=== PATIENT | female | born 1950 | race Caucasian/White ===

== ENCOUNTER 2017-04-11 22:53 | Observation (INO) ==
[2017-04-12] MEDS ORDERED: Ondansetron ODT 4 MG TAB.RAPDIS SL ONE (00:12)
[2017-04-12] MEDS ORDERED: *HR* HYDROmorphone (PF) 1 MG/ML SYRINGE IM ONE (00:12)
--- NOTE | 2017-04-12 00:15 | Emergency Department Note ---
Disposition Clinical Impression: Left leg pain, Vascular disease, peripheral Disposition: Admitted As Inpatient Condition: Undetermined Time of Disposition: 04:12 Lower Extremity Injury HPI - General Chief Complaint: ED Extremity Injury, Lower Stated Complaint: L Leg Pain Time Seen by Provider: 04/12/17 00:09 Source: patient, family Mode of arrival: ambulatory Limitations: no limitations Nursing Notes Reviewed: Yes Vital Signs Reviewed: Yes - History of Present Illness HPI Narrative: 67-year-old female diabetic arrives [facility] emergency department complaining of left lower extremity pain. The patient was recently seen at [facility] one day ago for similar complaints. MRI was obtained at [facility] which revealed "pinched nerves" and the discharge the patient home on [place]. The patient was instructed to return to the emergency department the pain worsened which she states it has so she arrives to [facility] emergency department for further evaluation. The patient has pain on palpation to light touch across her entire left lower extremity but has no true weakness noted. The patient has no saddle anesthesias , no bowel incontinence, no urinary retention. The patient does have tenderness to palpation of her lumbar spine. She denies any recent falls, injuries, any other complaints at this time. The patient is in the room stating that it hurts but when out of the room initially she was quiet. After examination was performed she is moaning and crying that her leg hurts. Patient 's family members seemed frustrated at inability to control pain. Patient is currently on [place] and gabapentin at home. Onset (ago): day(s) (4) Mechanism of Injury: unknown Pain Severity: severe Pain Scale: 10 Improves with: nothing Worsens with: nothing Associated symptoms: Reports: unable to bear weight - Related Data Home Medications Medication Instructions Recorded Confirmed Aspirin Enteric Coated [Aspirin EC] 81 mg PO DAILY 07/29/15 07/29/15 Atorvastatin Calcium [Lipitor] 80 mg PO HS 07/29/15 07/29/15 Bumetanide [Bumex] 1 mg PO BID 07/29/15 07/29/15 Carvedilol 12.5 mg PO BID 07/29/15 07/29/15 Insulin ASPART [NovoLOG] 40 unit SQ QAM AND QHS 07/29/15 07/29/15 Isosorbide MONOnitrate (24 HR) 60 mg PO DAILY 07/29/15 07/29/15 [Imdur] Lisinopril [Zestril] 5 mg PO DAILY 07/29/15 07/29/15 Metformin HCl [Glucophage] 1,000 mg PO BID 07/29/15 07/29/15 Spironolactone [Aldactone] 25 mg PO BID 07/29/15 07/29/15 Allergies Allergy/AdvReac Type Severity Reaction Status Date / Time No Known Allergies Allergy Verified 04/11/17 23:14 All systems ED: reviewed and negative except as stated. Constitutional: Denies: fever, chills, weakness, weight change Eyes: Denies: eye pain, eye discharge, vision change Cardiovascular: Denies: chest pain, palpitations, dyspnea on exertion, edema, syncope Respiratory: Denies: cough, dyspnea, wheezes, hemoptysis, stridor Gastrointestinal: Denies: abdominal pain, nausea, vomiting, diarrhea, constipation, hematemesis, melena, hematochezia Genitourinary: Denies: dysuria, frequency, hematuria, discharge Musculoskeletal: Reports: myalgia. Denies: back pain, neck pain, arthralgia Integumentary: Denies: rash, abrasion, lesions Neurological: Denies: headache, weakness, numbness, paresthesias, confusion, abnormal gait, vertigo Past Medical History - Past Medical History Attestation: Yes The following information was validated with the patient. Source: patient Medical history: Reports: cardiomyopathy, diabetes, hyperlipidemia, hypertension Surgical history: Reports: cholecystectomy, pacemaker/AICD Psychiatric history: Reports: no psych history - Social History Smoking Status: Current every day smoker Smokeless Tobacco Status: No Alcohol use: Reports: none Drug use: Reports: none Physical Exam - General Limitations: no limitations General appearance: alert, in distress (Due to pain) - Head Head exam: atraumatic, normocephalic, normal inspection - Neck Neck exam: Present: normal inspection, full ROM, trachea midline - Chest Chest inspection: Present: normal inspection, symmetric chest wall rise - Respiratory Respiratory exam: Present: normal lung sounds bilaterally - Cardiovascular Cardiovascular exam: Present: regular rate, normal rhythm, normal heart sounds - Abdominal Exam Abdominal exam: Present: soft, Non-Tender. Absent: tenderness, distention, guarding, rebound, rigidity - Extremities Exam Extremities exam: Present: full ROM, tenderness (Severe pain in LLE), other ( LLE superficial varicose veins) Course - Consultations Consultation #1: We spoke with Dr. Whitaker in vascular surgery who is rack production worker, he recommended obtaining a CT aorta with runoff. In addition we will admit the patient to the hospital. He requested that we place the patient directly on his list if we were going to have him see the patient further. Time: 03:15 Vital Signs Temperature 97.6 F 04/11/17 23:09 Pulse Rate 84 04/11/17 23:09 Respiratory Rate 18 04/11/17 23:09 Blood Pressure 99/61 04/11/17 23:09 O2 Sat by Pulse Oximetry 97 04/11/17 23:09 Temperature 97.6 F 04/12/17 05:54 Pulse Rate 82 04/12/17 05:54 Respiratory Rate 20 04/12/17 05:54 Blood Pressure 86/56 04/12/17 05:54 O2 Sat by Pulse Oximetry 100 04/12/17 05:54 Oxygen Delivery Oxygen Delivery Room Air Extremity Injury, Lower - MDM Narrative Medical decision making narrative: Patient is no acute fractures. Given the patient's symptoms and concern for intractable pain through the emergency department inability to ambulate, we will admit the patient to the hospital for elevated CPK, intractable pain, concern for arterial compromise of her left lower extremity. We will speak to the vascular surgeon with regards to this patient. We do not feel as though this is compartment syndrome at this time given the lack of trauma and symptoms. In addition we will admit the patient to the hospitalist service for further workup and care and pain control. Accepted by Dr. Lim. - Lab Data Lab results reviewed: Yes I reviewed the patient's lab results. Result diagrams: 04/12/17 01:14 04/12/17 01:14 Lab Results 04/12/17 04/12/17 04/12/17 Range/Units 01:14 01:14 01:14 WBC 12.3 H (4.3-11.1) K/mcL RBC 4.13 (3.82-4.97) M/mcL Hgb 12.4 (11.5-15.4) g/dL Hct 37.9 (35.3-44.9) % MCV 91.8 (83.0-100.0) fL MCH 30.0 (28.0-33.3) pg MCHC 32.7 (31.6-35.5) g/dL RDW 14.2 (11.5-14.5) % Plt Count 177 (140-400) K/mcL MPV 10.0 (9.4-12.4) fL Immature Gran % 0.8 (0-4) % Seg Neutrophils % 85.6 % Lymphocytes % 5.5 % Monocytes % 7.8 % Eosinophils % 0.1 % Basophils % 0.2 % Neutrophils # 10.5 H (1.6-8.9) K/mcL Lymphocytes # 0.7 (0.6-4.6) K/mcL Monocytes # 1.0 (0.0-1.3) K/mcL Eosinophils # 0.0 (0.0-0.6) K/mcL Basophils # 0.0 (0.0-0.2) K/mcL Immature Plt Fraction 5.6 (1.1-6.1) % ESR (0-15) mm/hr Sodium 128 L (136-145) mEq/L Potassium 4.4 (3.5-4.5) mEq/L Chloride 94 L (98-109) mEq/L Carbon Dioxide 21 (19-29) mEq/L BUN 30 H (7-20) mg/dL Creatinine 1.03 (0.57-1.11) mg/dL Est GFR ( Amer) > 60 (> 60) Est GFR (Non-Af Amer) 53 L (> 60) BUN/Creatinine Ratio 29 H (6-26) Glucose 119 H (70-99) mg/dL Calculated Osmolality 273 L (280-300) Lactic Acid 1.5 (0.5-2.2) mmol/L Calcium 9.3 (8.6-10.8) mg/dL Creatine Kinase 804 H (29-168) Units/L 04/12/17 Range/Units 01:14 WBC (4.3-11.1) K/mcL RBC (3.82-4.97) M/mcL Hgb (11.5-15.4) g/dL Hct (35.3-44.9) % MCV (83.0-100.0) fL MCH (28.0-33.3) pg MCHC (31.6-35.5) g/dL RDW (11.5-14.5) % Plt Count (140-400) K/mcL MPV (9.4-12.4) fL Immature Gran % (0-4) % Seg Neutrophils % % Lymphocytes % % Monocytes % % Eosinophils % % Basophils % % Neutrophils # (1.6-8.9) K/mcL Lymphocytes # (0.6-4.6) K/mcL Monocytes # (0.0-1.3) K/mcL Eosinophils # (0.0-0.6) K/mcL Basophils # (0.0-0.2) K/mcL Immature Plt Fraction (1.1-6.1) % ESR 64 H (0-15) mm/hr Sodium (136-145) mEq/L Potassium (3.5-4.5) mEq/L Chloride (98-109) mEq/L Carbon Dioxide (19-29) mEq/L BUN (7-20) mg/dL Creatinine (0.57-1.11) mg/dL Est GFR ( Amer) (> 60) Est GFR (Non-Af Amer) (> 60) BUN/Creatinine Ratio (6-26) Glucose (70-99) mg/dL Calculated Osmolality (280-300) Lactic Acid (0.5-2.2) mmol/L Calcium (8.6-10.8) mg/dL Creatine Kinase (29-168) Units/L - Radiology Data Radiology results reviewed: Yes I reviewed the patient's radiology results. Attestation Statement - Attestation Attestation: I examined this patient and my medical decision-making was reviewed with the CHIEF BUSINESS DEVELOPMENT OFFICER/PA/Advanced Practice Nurse/Resident Physician. I agree with the documented findings, disposition and treatment plan as described except to the extent set forth below. In summary this is a female patient with pain out of proportion to examination of the left lower extremity. Duplex shows concern for arterial impairment. ABIs are concerning and borderline. Given low blood pressure this could represent early critical stenosis. Ultimately we will proceed with admission for intractable lower extremity pain. We will obtain CT angiography with runoffs from the aorta. Additionally we will control her pain. X-rays show no evidence of acute fracture.
[2017-04-12] MEDS ORDERED: 0.9 % Sodium Chloride 1,000 ML IVC ONE ×2 (00:17→03:14)
[2017-04-12 01:20] LABS: Hematocrit 37.9 % (35.3-44.9); Hemoglobin 12.4 g/dL (11.5-15.4); Immature Granulocytes % 0.8 % (0-4); Immature Platelets 5.6 % (1.1-6.1); Lymphocytes % 5.5 %; Mean Corpuscular HGB Conc 32.7 g/dL (31.6-35.5); Mean Corpuscular Volume 91.8 fL (83.0-100.0); Platelet Count 177 K/mcL (140-400); Red Blood Count 4.13 M/mcL (3.82-4.97); Red Cell Distribution Width 14.2 % (11.5-14.5); Segmented Neutrophils % 85.6 %
[2017-04-12 01:21] LABS: Basophils % 0.2 %; Eosinophils % 0.1 %; Lymphocytes # 0.7 K/mcL (0.6-4.6); Monocytes % 7.8 %; Neutrophils # 10.5 K/mcL (1.6-8.9)
[2017-04-12 01:35] LABS: BUN/Creatinine Ratio 29 (6-26); Blood Urea Nitrogen 30 mg/dL (7-20); Calcium 9.3 mg/dL (8.6-10.8); Carbon Dioxide 21 mEq/L (19-29); Chloride 94 mEq/L (98-109); Creatine Kinase 804 Units/L (29-168); Glucose 119 mg/dL (70-99); Osmolality,Calculated 273 (280-300); Potassium 4.4 mEq/L (3.5-4.5); Sodium 128 mEq/L (136-145); eGFR For African Americans > 60 (> 60); eGFR For Non-African Americans 53 (> 60)
[2017-04-12] MEDS ORDERED: predniSONE 20 MG TABLET PO ONE (04:11)
[2017-04-12] MEDS ORDERED: Ondansetron 4 MG/2 ML VIAL IVP PRN (05:34)
[2017-04-12] MEDS ORDERED: *HR* HYDROmorphone (PF) 1 MG/ML SYRINGE IVP PRN (05:34)
[2017-04-12] MEDS ORDERED: *HR* Morphine 2 MG/ML SYRINGE IVP PRN ×2 (05:34→11:08)
[2017-04-12] MEDS ORDERED: Naloxone 0.4 MG/ML INJ IVP PRN (05:34)
[2017-04-12] MEDS ORDERED: *HR* Dextrose 50 % in Water (Syg) 50 ML SYRINGE IVP PRN (05:37)
[2017-04-12] MEDS ORDERED: Dextrose Gel 15 GM PO PRN ×2 (05:37)
[2017-04-12] MEDS ORDERED: D5% in Water 1,000 ML IVC PRN (05:37)
--- NOTE | 2017-04-12 05:46 | Internal Med History&Physical ---
Date of Encounter: 04/12/17 Time of Encounter: 04:40 Assessment and Plan (1) Vascular disease, peripheral Current visit: Yes Status: Acute Given CTA aorta findings, patient's LE pain likely secondary to worsening of PVD Vascular surgery consultation requested with DR. Richards. Case was discussed with Dr. 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 transplanted heart: unspecified whether [place] or transplanted heart Associated angina: angina presence unspecified Qualified Code(s): I25.10 - Atherosclerotic heart disease of [place] coronary artery without angina pectoris (5) Chronic systolic congestive heart failure Current visit: No Status: Chronic No clinical signs of acute exacerbation continue home medications (6) DVT prophylaxis Current visit: Yes Status: Acute Heparin SQ (7) Tobacco abuse Current visit: Yes Status: Acute smoking cessation counseling provided patient not ready to quit at this time refused nicotine replacement therapy Internal Medicine - H&P: HPI Chief complaint: LLE pain Admitted From: Home Plans for Post Hospital Care: Home History of present illness: Ms. Venegas is a 67 year old female with PMH of CAD, CHF, s/p AICD placement, HTN, HLD, COPD, chronic smoker who presents to the ER for worsening LLE pain. Patient was seen at [facility] a day ago for the same complain and was sent to home with PO pain medications. The pain persisted and was unbareable due to which she came to the hospital. Upon arrival to the ER, she received IV dilaudid and had a LE KD study which was concerning for high grade PVD due to which patient underwent CTA aorta with run off as per vascular surgery's recommendations. CTA aorta showed high grade stenosis of left common femoral artery, superficial, and deep femoral arteries. Patient at this time is resting comfortably in bed and reports that the IV pain medication resolved her pain. She denies any chest pain, sob, abd pain, n/v, fever, or chills. Given her elevated ESR and persistent pain, PO steroids were given in the ER prior to patient undergoing the CTA aorta. Past Med Surg Social Fam HX - Past Medical History Medical history: cardiomyopathy, diabetes, hyperlipidemia, hypertension Psychiatric history: no psych history - Past Surgical History Surgical History: cholecystectomy, pacemaker/AICD - Social History Smoking Status: Current every day smoker Smokeless Tobacco Status: No Alcohol use: none Drug use: none - Family History Mother Living Status: Hx Family Cardiac Disorders: Yes Hx Family Respiratory Disorders: No Hx Family Cancer: No Hx Family Endocrine Disorder: Yes Father Hx Family Cardiac Disorders: Yes Hx Family Endocrine Disorder: Yes Internal Medicine - H&P: Meds Aspirin Enteric Coated [Aspirin EC] 81 mg PO DAILY 07/29/15 [History] Atorvastatin Calcium [Lipitor] 80 mg PO HS 07/29/15 [History] Bumetanide [Bumex] 1 mg PO BID 07/29/15 [History] Carvedilol 12.5 mg PO BID 07/29/15 [History] Insulin ASPART [NovoLOG] 40 unit SQ QAM AND QHS 07/29/15 [History] Isosorbide MONOnitrate (24 HR) [Imdur] 60 mg PO DAILY 07/29/15 [History] Lisinopril [Zestril] 5 mg PO DAILY 07/29/15 [History] Metformin HCl [Glucophage] 1,000 mg PO BID 07/29/15 [History] Spironolactone [Aldactone] 25 mg PO BID 07/29/15 [History] Allergies No Known Allergies Allergy (Verified 04/11/17 23:14) All Systems PM: A 10-system review of systems was performed and is negative for pertinent findings except as documented above in the HPI. - Constitutional Constitutional: as per HPI - Constitutional Vitals: Temp Pulse Resp BP Pulse Ox 97.6 F 84 18 102/68 97 04/11/17 23:09 04/11/17 23:09 04/12/17 05:15 04/12/17 05:15 04/11/17 23:09 General appearance: Present: disheveled, A&O X 3, no acute distress, obese - Head Head exam: Present: atraumatic, normocephalic - Eye Eye exam: Present: conjuntiva pink, sclera anicteric - Respiratory Respiratory exam: Absent: respiratory distress, wheezes - Cardiovascular Cardiovascular exam: Present: RRR, +S1, +S2. Absent: diastolic murmur, gallop, rubs, systolic murmur - GI/Abdominal GI/Abdominal exam: Present: normal bowel sounds, soft, no peritoneal signs. Absent: distended, tenderness - Extremities Exam Extremities exam: Present: warm, radial pulses palpable and symetrical. Absent : calf tenderness, pedal edema (varicose veins in b/l LE ) - Neurological Exam Neurological exam: Present: alert, oriented X3 - Psychiatric Psychiatric exam: Present: normal affect, normal mood Internal Med - H&P Results - Labs CBC & Chem 7: 04/12/17 01:14 04/12/17 01:14
[2017-04-12] MEDS ORDERED: 0.9 % Sodium Chloride 250 ML IVC ONE (06:46)
[2017-04-12] MEDS: *HR* Heparin 5,000 UNIT/ML VIAL SQ SCH ×3 (06:59→22:10)
[2017-04-12] MEDS: Insulin LISPRO 300 UNITS/3 ML VIAL SQ SCH ×3 (07:56→17:36)
[2017-04-12] MEDS ORDERED: *HR* Morphine 2 MG/ML SYRINGE IVP ONE (08:21)
[2017-04-12] MEDS: Aspirin 81 MG TAB.CHEW PO SCH (08:30)
--- NOTE | 2017-04-12 09:47 | Internal Med Progress Note ---
<Ja Lewis - Last Filed: 04/12/17 17:00> Date of Encounter: 04/12/17 Time of Encounter: 09:30 - Assessment and plan (1) Left leg pain Current Visit: Yes Status: Acute Assessment and plan: - Left leg pain radiating from back via left later thigh to left knee with numbness/tingling in the left foot. - Likely multifactorial including radiculopathy from sciatica and/or spinal stenosis and possible ischemic pain from peripheral vascular disease (less likely per vascular surgery). - Will give start high-dose steroid for sciatica. - Lumbar MRI cannot be done as patient's defibrillator is not formally approved by FDA for MRI. Back surgery has been consulted and appreciate further evaluation and recommendations. May consider lumbar CT with contrast. - Pain control with prn tylenol, norco and/or morphine. (2) Spinal stenosis of lumbar region with radiculopathy Current Visit: Yes Status: Acute Assessment and plan: - Lumbar CT without contrast at [place]: Moderate foraminal stenosis at L2_L3, moderate central canal stenosis & moderate/severe foraminal stenosis at L3-L4, mld central canal & severe foraminal stenosis at L4-L5. - Lumbar MRI cannot be done as patient's defibrillator is not formally approved by FDA for MRI. - May consider lumbar CT with contrast for further evaluation. - Back surgery has been consulted and appreciate further evaluation and recommendations. (3) Vascular disease, peripheral Current Visit: Yes Status: Acute Assessment and plan: - Aorta with runoff CTA found high-grade stenosis involving the left common femoral artery along with multilevel superficial femoral artery stenoses. Also noted to have infrarenal aortic dilation measuring 3.7 cm. - Per vascular surgery, patient will need elective open left common femoral endarterectomy with patch angioplasty, which can be done in outpatient setting. - Will obtain pharmacologic nuclear stress test for cardiac risk stratification. (4) Chronic systolic congestive heart failure Current Visit: No Status: Chronic Assessment and plan: - Echo from 06/28/15 showed LVEF 25-30% with severe global hypokinesis. - Continue beta vicente. - Hold diuretics for now given low blood pressure and possible dehydration ( with elevated BUN/Cr ratio). - Strict I/O & daily weight. - Low salt diet. (5) CAD (coronary artery disease) Current Visit: Yes Status: Chronic Assessment and plan: - Continue aspirin, statin and beta vicente. Qualifiers: Coronary Disease-Associated Artery/Lesion type: unspecified vessel or lesion type [place] vs. transplanted heart: unspecified whether [place] or transplanted heart Associated angina: angina presence unspecified Qualified Code(s): I25.10 - Atherosclerotic heart disease of [place] coronary artery without angina pectoris (6) Diabetes mellitus Current Visit: Yes Status: Chronic Assessment and plan: - Insulin sliding scale with frequent glucose monitoring. Qualifiers: Diabetes mellitus type: type 2 Diabetes mellitus complication status: with unspecified complications Diabetes mellitus intermediate insulin use: unspecified intermediate insulin use status Qualified Code(s): E11.8 - Type 2 diabetes mellitus with unspecified complications (7) DVT prophylaxis Current Visit: Yes Status: Acute Assessment and plan: - Continue SQ heparin. - Subjective Interval history: The note is NOT for billing purpose. Patient was seen and examined this morning. Patient reports left leg pain started since 04/10/17 and describes as "hurting" pain radiating from lower back via left lateral thigh to left knee. Patient also reports numbness/tingling of left foot. Morphine did help the pain but only lasts for short period of time. Patient was on gabapentin 600 mg TID at home but states that does not help. Patient denies fever, chills, shortness of breath, cough, chest pain, abdominal pain, nausea, vomiting. - Constitutional Vitals: Temp Pulse Resp BP Pulse Ox 97.5 F L 74 18 106/51 97 04/12/17 07:50 04/12/17 07:50 04/12/17 07:50 04/12/17 07:50 04/12/17 08:40 General appearance: Present: cooperative, A&O X 3, no acute distress, obese - Head Head exam: Present: atraumatic, normocephalic - Eye Eye exam: Present: EOMI ( ), PERRL, conjuntiva pink, sclera anicteric - Neck Neck exam general surgery: Present: supple, trachea midline. Absent: lymphadenopathy - Respiratory Respiratory exam: Present: CTAB. Absent: accessory muscle use, rales, rhonchi, wheezes - Cardiovascular Cardiovascular exam: Present: RRR, +S1, +S2. Absent: diastolic murmur, gallop, rubs, systolic murmur - GI/Abdominal GI/Abdominal exam: Present: normal bowel sounds, soft, no peritoneal signs. Absent: distended, tenderness - Extremities Exam Extremities exam: Present: warm, radial pulses palpable and symetrical. Absent : calf tenderness, cyanotic, pedal edema Additional comments: No palpable pedal pulses - Neurological Exam Neurological exam: Present: CN II-XII intact, oriented X3, no focal deficits. Absent: pronater drift, facial droop, speech deficit Additional comments: Bilateral lower extremity strength 5/5 bilateral and no foot drop noted. - Skin Skin exam: Present: dry, intact, warm Internal Medicine: Result - Labs CBC & Chem 7: 04/12/17 01:14 04/12/17 01:14 Consult Discharge Plan - Plan Referrals: Ramiro Moy DO [Primary Care Provider] - <Dannie Olivera - Last Filed: 04/12/17 18:08> Date of Encounter: 04/12/17 - Constitutional Vitals: Temp Pulse Resp BP Pulse Ox 98.3 F 71 16 116/77 93 04/12/17 16:02 04/12/17 16:02 04/12/17 16:02 04/12/17 16:02 04/12/17 16:02 Internal Medicine: Result - Labs CBC & Chem 7: 04/12/17 01:14 04/12/17 01:14 - Attending Attestation I examined this patient and my medical decision-making was reviewed with the Resident Physician on 04/12/17. I agree with the documented findings, disposition and treatment plan as described except to the extent set forth below. Ms. Venegas is currently admitted for acute L leg pain. She was admitted early this AM. Pain continues. Meds ordered. Appreciate surgical input regarding potential for vascular source. Concern for spinal source and sciatic type pain. Cannot have MRI due to AICD. Plan Steroids Pain control Spinal surgery consult.
[2017-04-12] MEDS ORDERED: methylPREDNISolone 125 MG/2 ML VIAL IVP ONE (10:16)
[2017-04-12] MEDS ORDERED: Acetaminophen 325 MG TABLET PO PRN (10:59)
--- NOTE | 2017-04-12 11:03 | Vascular/Endovasc Consult Note ---
Date of Encounter: 04/12/17 Time of Encounter: 08:45 Assessment and Plan (1) Vascular disease, peripheral Current Visit: Yes Status: Acute The patient has thigh and knee pain that is unrelated to her arterial occlusive disease. She specifically denies calf or forefoot pain. She denies claudication. She underwent CTA aortogram with runoff. She has extensive calcification of the aorta and both iliac arteries however there does not appear to be obstruction at this level. She has bilateral common femoral artery stenosis. She has severe stenosis on the left common femoral artery. She has multilevel superficial femoral artery stenoses some of which are critical. The superficial femoral arteries are patent on both sides. The popliteal arteries are relatively free of disease. She has 3 vessel runoff that is relatively free of disease on both sides. The pain that she is having is likely not from arterial occlusive disease. She will require elective repair of the left lower extremity. This will require an open left common femoral endarterectomy with patch angioplasty. I would also make an attempt at long segment angioplasty and stent placement left superficial femoral artery to preserve the [place] arterial system. The patient does have 3 vessel runoff which will improve the overall outcome. Surgery can be arranged after cardiac risk stratification and complete evaluation and management of thigh pain syndrome on the left. This may require further workup for spinal or nerve entrapment as a source of the pain. - History of Present Illness Consult date: 04/12/17 Consult reason: Left leg pain Chief complaint: Left leg pain History of present illness: Ms. Venegas is a 67 year old female Who is a morbidly obese diabetic with a long smoking history. She presented with left thigh and left knee pain. She was evaluated in the emergency department with venous duplex which was negative. It was noted that she had a decreased ankle-brachial index. A formal ankle-brachial index was not performed. The reported ankle-brachial index was 0.5 on the left. She was admitted to the hospital on heparin. She now presents for evaluation of arterial occlusive disease. On history she has very limited physical activity and does not report any claudication. She has pain on the lateral aspect of the left thigh and lateral aspect of the left knee. She has no calf or foot pain. She denies ulcers or tissue loss. She has a known abdominal aortic aneurysm 3 cm in size. She now presents for further evaluation of the arterial occlusive disease with left lower extremity. Past Med Surg Social Fam HX - Past Medical History Medical history: cardiomyopathy, diabetes, hyperlipidemia, hypertension Psychiatric history: no psych history - Past Surgical History Surgical History: cholecystectomy, pacemaker/AICD - Social History Smoking Status: Current every day smoker Packs per day: 1 pack Smokeless Tobacco Status: No Alcohol use: none Drug use: none - Family History Mother Living Status: Hx Family Cardiac Disorders: Yes Hx Family Respiratory Disorders: No Hx Family Cancer: No Hx Family Endocrine Disorder: Yes Father Hx Family Cardiac Disorders: Yes Hx Family Endocrine Disorder: Yes Medications and Allergies Aspirin Enteric Coated [Aspirin EC] 81 mg PO DAILY 07/29/15 [History] Atorvastatin Calcium [Lipitor] 80 mg PO HS 07/29/15 [History] Bumetanide [Bumex] 1 mg PO BID 07/29/15 [History] Insulin ASPART [NovoLOG] 40 unit SQ QAM AND QHS 07/29/15 [History] Lisinopril [Zestril] 5 mg PO DAILY 07/29/15 [History] Metformin HCl [Glucophage] 1,000 mg PO BID 07/29/15 [History] Spironolactone [Aldactone] 25 mg PO BID 07/29/15 [History] Acetaminophen [Tylenol] 1,000 mg PO Q6HR PRN 04/12/17 [History] Carvedilol [Coreg] 3.125 mg PO BIDWM 04/12/17 [History] Dicyclomine [Bentyl] 10 mg PO QID 04/12/17 [History] Furosemide [Lasix] 20 mg PO BID 04/12/17 [History] Gabapentin [Neurontin] 600 mg PO TID 04/12/17 [History] HYDROcodone/Acet 5/325 mg [[place] 5-325 mg] 1 tab PO Q4H PRN 04/12/17 [History] Oxygen 2 l .ROUTE AD 04/12/17 [History] Potassium 99 mg PO DAILY 04/12/17 [History] Sertraline [Zoloft] 100 mg PO DAILY 04/12/17 [History] Allergies No Known Allergies Allergy (Verified 04/11/17 23:14) All Systems Review: A 10-system review of systems was performed and is negative for pertinent findings except as documented above in the HPI. Exam Vital Signs, Last 4 Hours Temp Pulse Resp BP Pulse Ox 04/12/17 08:40 97 04/12/17 07:50 97.5 F L 74 18 106/51 97 General: Present: No Apparent Distress, Other (Truncal obesity) HEENT: Present: Trachea midline, Pupils equal Neck: Present: Midline deformity Cardiac: Present: Reg Rate and Rhythm, Normal S1 and S2 Lungs: Present: Decreased breath sounds, Other (The patient has bilateral wheezing in the bases. She also has decreased overall her motion.) Neuro: Present: Alert and responsive, No focal deficits noted Abdomen: Present: Soft, Non-tender Vascular: Present: Normal capillary refill (Both feet are warm and pink without evidence of tissue loss. She has no palpable pedal pulses.) Consult Discharge Plan - Plan Referrals: Ramiro Moy DO [Primary Care Provider] -
[2017-04-12] MEDS: *HR* HYDROcodone/Acet 5/325 mg TABLET PO PRN ×3 (11:26→22:38)
[2017-04-12] MEDS ORDERED: Ketorolac 30 MG/ML VIAL IVP ONE (12:18)
--- NOTE | 2017-04-12 12:51 | Event Note ---
Date of Encounter: 04/12/17 Time of Encounter: 12:45 Discussed the plan with Dr. Richards and will likely plan to follow-up as outpatient for surgical intervention- Left femoral endarterectomy, SFA angioplasty and stent placement. Discussed with Dr. Olivera and will plan to proceed with pre-operative work-up including a non exercise stress test while inpatient.
--- NOTE | 2017-04-12 18:12 | Venous Imaging Report ---
LE Venous Duplex Patient Name:Raina Venegas Order Number:[id number] Procedure Date:04/12/2017 Date:1950Age:67 yrs Gender:Female Location:[facility] ED Room #: ER03 Edger Operator:Odessa Chavez RDCS Referring MD:DO Zaira Levi MD:Juan Manuel Avalos MD Primary Indications:Pain in limb Secondary Indications: Risk Factors Yes/No Hx of DVT Yes ASA Yes Impressions: Normal left lower extremity deep and superficial venous exam. Normal contralateral common femoral vein. Recommendations: Preliminary given to Dr Ledezma in ED. Findings Venous Duplex Results: Left: Venous imaging of the lower extremity reveals full patency and normal vessel compressibility of the left distal iliac, left common femoral, left superficial femoral, left popliteal, left posterior tibial, left peroneal, left great saphenous and left lesser saphenous. Doppler signals in the evaluated veins were normal. Prior Study: No prior study available for comparison. Lower Extremity Venous Duplex Side Vein Compress Spontaneous Flow Augment Diameter (cm) Depth (cm) Left Distal Iliac Normal Yes Phasic Yes Left Common Femoral Normal Yes Phasic Yes Left Superficial Femoral Normal Yes Phasic Yes Left Popliteal Normal Yes Phasic Yes Left Posterior Tibial Normal Yes Phasic Yes Left Peroneal Normal Yes Phasic Yes Left Great Saphenous Normal Yes Phasic Yes Left Lesser Saphenous Normal Yes Phasic Yes Updated by Juan Manuel Avalos MD on 04/12/2017 6:05:01 PM electronically signed on 04/12/2017 6:05:24 PM with status of Final
--- NOTE | 2017-04-12 18:27 | Arterial Study Report ---
LE Arterial Physiologic Study Patient Name:Raina Venegas Order Number:[id number] Procedure Date:04/12/2017 Date:1950Age:67 yrs Gender:Female Lt BP:104 / mmHg Rt.BP:105 / mmHgHeart Rate: Location:[facility] ED Room #: ER03 Log Feeder:Odessa Chavez RDCS Referring MD:DO Zaira Levi MD:Juan Manuel Avalos MD Primary Indications:Decreased arterial flow Risk Factors Yes/No Hypertension Yes Diabetes Yes Hypercholesterolemia Yes Smoking Current Yes Hx of CAD/PTCA Yes Impressions: The right KD and waveforms are normal. Right KD 1.11. The left KD and waveforms are consistent with moderate disease. Left KD 0.52. Recommendations: Risk factor reduction. Further evaluation recommended. Test completed on 04/12/2017 at 2:50:00 am. Critical findings reported to Dr Ledezma in person at 2:55:00 am on 04/12/2017 by Odessa Chavez RDCS. Findings LE Arterial Physiologic Exam: PVR: Right: The PVR waveforms are normal in the right ankle. Left: The PVR waveforms are severely diminished in the left ankle. Prior Study: No prior study available for comparison. Segmental Pressures Side Location Pressure Index Result Right Posterior Tibial 117 1.11 Normal Right Dorsalis Pedis 105 1.00 Normal Left Posterior Tibial 55 0.52 Moderately Diminished Left Dorsalis Pedis 50 0.48 Severely Diminished Ankle Brachial Index Right Systolic Diastolic DK Brachial 105 1.11 Dorsalis Pedis 105 1.00 Posterior Tibial 117 1.11 Left Systolic Diastolic KD Brachial 104 0.52 Dorsalis Pedis 50 0.48 Posterior Tibial 55 0.52 Updated by Juan Manuel Avalos MD on 04/12/2017 6:19:45 PM with Status of Final electronically signed on 04/12/2017 6:20:04 PM with status of Final
[2017-04-12] MEDS ORDERED: Insulin LISPRO 300 UNITS/3 ML VIAL SQ SCH (21:00)
[2017-04-12] MEDS: Gabapentin 300 MG CAPSULE PO SCH (22:08)
[2017-04-13 04:12] LABS: Basophils % 0.2 %; Hematocrit 35.2 % (35.3-44.9); Hemoglobin 11.7 g/dL (11.5-15.4); Immature Granulocytes % 0.7 % (0-4); Lymphocytes % 11.2 %; Mean Corpuscular HGB Conc 33.2 g/dL (31.6-35.5); Mean Corpuscular Volume 93.1 fL (83.0-100.0); Mean Platelet Volume 10.7 fL (9.4-12.4); Monocytes # 1.1 K/mcL (0.0-1.3); Monocytes % 12.5 %; Neutrophils # 6.7 K/mcL (1.6-8.9); Nucleated Red Blood Cells 0.2 /100 WBC (0); Platelet Count 156 K/mcL (140-400); Red Blood Count 3.78 M/mcL (3.82-4.97); Red Cell Distribution Width 14.3 % (11.5-14.5); Segmented Neutrophils % 75.4 %
[2017-04-13 04:24] LABS: Calcium 9.1 mg/dL (8.6-10.8); Magnesium 1.9 mg/dL (1.6-2.6); Phosphorous 4.1 mg/dL (2.3-4.7); Potassium 4.4 mEq/L (3.5-4.5)
[2017-04-13] MEDS: *HR* Heparin 5,000 UNIT/ML VIAL SQ SCH ×2 (06:01→14:46)
[2017-04-13] MEDS: *HR* HYDROcodone/Acet 5/325 mg TABLET PO PRN (06:02)
[2017-04-13] MEDS ORDERED: Regadenoson 0.4 MG/5 ML SYRINGE IVP ONE (06:12)
[2017-04-13] MEDS ORDERED: predniSONE 20 MG TABLET PO SCH (10:00)
[2017-04-13] MEDS: Insulin LISPRO 300 UNITS/3 ML VIAL SQ SCH ×2 (10:07→11:31)
[2017-04-13] MEDS: Gabapentin 300 MG CAPSULE PO SCH ×2 (10:07→14:46)
[2017-04-13] MEDS: Aspirin 81 MG TAB.CHEW PO SCH (10:07)
--- NOTE | 2017-04-13 10:57 | Nuclear Medicine Stress Report ---
Regadenoson Nuclear Stress Name: Raina Venegas Date of Study: 04/13/2017 Date: 1950 Ht: 64.0 in Medical Record#: [id number] Age: 67 Wt: 199.0 lb Gender: Female Order #: [id number] Location: [facility] Room: [facility] Supervising Provider: Pablo Smith CNP Reading Physician: Kg Kaba DO, [facility] Ordering Physician: Dannie Olivera DO Primary Care Physician: Ramiro Moy DO Stress Technologist: Deisi Talley, FIELD ENUMERATOR Bicycle Assembler: Roman Augustine Indications: Chest Pain Impression: Pharmacologic stress ECG is non diagnostic due to submaximal HR. The left ventricle is dilated. LVEDV = 226 mL. Large sized, moderate to severe intensity, primarily fixed perfusion defects involving the inferior, inferolateral, anteroseptal, and apex segments c/w a prior infarct. No significant [place]-infarct ischemia visualized. History: Hypertension Diabetes Hypercholesteremia History of Smoking Prior PCI Stress Test Summary: Stress Test Type: Pharmacologic Regadenoson 0.4mg/5ml given IV Baseline Information: Initial Heart Rate: 72 Blood Pressure: 108/68 Stress Information: Test Terminated Due to (primary): As per protocol Maximum Blood Pressure: 68/64 Maximum Heart Rate: 81 Percent Maximum Heart Rate Achieved: 53 Double Product: 7938 METS Reached: 1 Symptoms: No chest symptoms Nuclear Summary: SPECT myocardial perfusion imaging using Tc99m Sestamibi given intravenously was performed at rest and following cardiac stress testing. The resting images were obtained following initial dose of 11.6 mCi. Following stress an additional dose of 35.2 mCi was given at peak exercise or 30 seconds post regadenoson infusion. Medication Given: Time Medication Dose Units Route Findings: Stress Note * Resting ECG demonstrated normal sinus rhythm. * No baseline arrhythmias were noted. * Pharmacologic stress ECG is non diagnostic due to submaximal HR. * No chest pain or arrhythmias during stress. * Normal hemodynamic responses to pharmacologic stress. Study Quality * Study quality is average. Gated EF % * Gated EF = 22%. Left Ventricle * The left ventricle is dilated. LVEDV = 226 mL. Inferior Perfusion Rest * The inferior segment shows a severe reduction in perfusion. * The inferolateral segment shows a severe reduction in perfusion. Inferior Perfusion Stress * The inferior segment shows a severe reduction in perfusion. * The inferolateral segment shows a severe reduction in perfusion. Anterior Perfusion Rest * The anteroseptal segment shows a mild reduction in perfusion. Anterior Perfusion Stress * The anteroseptal segment shows a mild reduction in perfusion. TID * No evidence of transient ischemic dilatation. TID ratio = 1.19. Lung Uptake * There is no evidence of increase lung uptake. Updated by Kg Kaba DO, FACCharis, ELIZABETH, NINA on 04/13/2017 10:50:51 AM electronically signed on 04/13/2017 10:52:13 AM with status of Final
[2017-04-13 11:20] VITALS: BP 97/67
--- NOTE | 2017-04-13 11:53 | Discharge Summary ---
<Ja Lewis - Last Filed: 04/13/17 14:25> Date of Encounter: 04/13/17 Time of Encounter: 10:00 - Discharge Diagnosis (1) Vascular disease, peripheral Priority: Primary Status: Acute (2) Spinal stenosis of lumbar region with radiculopathy Priority: Primary Status: Acute (3) Left leg pain Priority: Secondary Status: Acute (4) Chronic systolic congestive heart failure Priority: Secondary Status: Chronic (5) CAD (coronary artery disease) Priority: Secondary Status: Chronic Qualifiers: Coronary Disease-Associated Artery/Lesion type: unspecified vessel or lesion type [place] vs. transplanted heart: unspecified whether [place] or transplanted heart Associated angina: angina presence unspecified Qualified Code(s): I25.10 - Atherosclerotic heart disease of [place] coronary artery without angina pectoris (6) Diabetes mellitus Priority: Secondary Status: Chronic Qualifiers: Diabetes mellitus type: type 2 Diabetes mellitus complication status: with unspecified complications Diabetes mellitus terminal operator insulin use: unspecified intermediate insulin use status Qualified Code(s): E11.8 - Type 2 diabetes mellitus with unspecified complications - Discharge Medications Prescriptions: HYDROcodone/Acet 5/325 mg [[place] 5-325 mg] 1 tab PO Q4H PRN #40 tablet PRN Reason: Pain predniSONE [PredniSONE] 40 mg PO DAILY #10 tablet Home Medications: Aspirin Enteric Coated [Aspirin EC] 81 mg PO DAILY 07/29/15 [History] Atorvastatin Calcium [Lipitor] 80 mg PO HS 07/29/15 [History] Bumetanide [Bumex] 1 mg PO BID 07/29/15 [History] Insulin ASPART [NovoLOG] 40 unit SQ QAM AND QHS 07/29/15 [History] Lisinopril [Zestril] 5 mg PO DAILY 07/29/15 [History] Metformin HCl [Glucophage] 1,000 mg PO BID 07/29/15 [History] Spironolactone [Aldactone] 25 mg PO BID 07/29/15 [History] Acetaminophen [Tylenol] 1,000 mg PO Q6HR PRN 04/12/17 [History] Carvedilol [Coreg] 3.125 mg PO BIDWM 04/12/17 [History] Dicyclomine [Bentyl] 10 mg PO QID 04/12/17 [History] Furosemide [Lasix] 20 mg PO BID 04/12/17 [History] Gabapentin [Neurontin] 600 mg PO TID 04/12/17 [History] Oxygen 2 l .ROUTE AD 04/12/17 [History] Potassium 99 mg PO DAILY 04/12/17 [History] Sertraline [Zoloft] 100 mg PO DAILY 04/12/17 [History] HYDROcodone/Acet 5/325 mg [[place] 5-325 mg] 1 tab PO Q4H PRN #40 tablet 04/13/17 [Rx] predniSONE [PredniSONE] 40 mg PO DAILY #10 tablet 04/13/17 [Rx] Allergies/Adverse Reactions: Allergies No Known Allergies Allergy (Verified 04/11/17 23:14) Procedures/tests Complete & Pending: Procedures Performed prior 72 hours Category Date Time Status NM luba perf SPECT multi [NM] Routine Exams 04/12/17 15:43 Taken SP pharm nuclear stress Routine Y 04/12/17 15:43 Completed Date of admission: 04/12/17 04:36 Primary care physician: Ramiro Moy, Consults: 04/12/17 05:39 Consult to Physician [CONS] Routine Consulting Provider: Cosmo Richards Reason for Consult: PVD LLE Call Completed: Yes 04/12/17 14:43 Consult to Physician [CONS] Routine Consulting Provider: Juan Manuel Lovell Jr Reason for Consult: 67 F admitted for 2-day history of left leg pain radiating from back to left knee. Significant stenosis on CT aorta but no urgent need of surgery per vascular surgery. Recent CT lumbar at [facility] shows moderate central canal stenosis at L3-L4. Lumbar MRI cannot be done due defibrillator. Appreciate further evaluation and recommendations. Call Completed: Yes 04/13/17 10:47 Consult to Physical Therapy [CONS] Routine Comment: Evaluate, develop and implement POC Reason for Consult: Discharge plan OT [Consult to Occupational Therapy] [CONS] Routine Comment: Evaluate, develop and implement POC Reason for Consult: Discharge plan Discharging clinician: Ja Lewis Anticipated date of discharge: 04/13/17 - Patient Status Disposition: Home, Self-Care Condition: Fair Functional capacity at discharge: independent ambulation Overall status at discharge: patient is progressing back to baseline - Discharge Instructions Instructions: Hydrocodone/Acetaminophen (By mouth), Peripheral Vascular Disorders (DC) Follow Up With: Cosmo Richards MD [Partnered Physician] - (Web request sent 7/4/17. The office will call you with an appointment.) Juan Manuel Lovell Jr, MD [Partnered Physician] - 04/15/17 9:00 am (9 am on 04/15/17) Ramiro Moy DO [Primary Care Provider] - (Please call your primary physician for a follow up within 7-10 days.) Additional Instructions: Please take prescribed prednisone 40 mg daily for 5 more days. Please continue your home dose gabapentin. You can use prescribed [place] 5-325 1 tablet every 4 hours as needed for pain ( 40 pills, no refill) Please follow up with Dr. Lovell of [place] [facility] regarding your spinal stenosis and appointment time will be 9 am on 04/15/17. Please follow up with Dr. Richards of [place] [facility] regarding your left common femoral artery stenosis within a week. Please follow up with your primary care physician regarding your hospitalization within a week. - Diet and Activity Activity: resume usual activities as tolerated Diet: diabetic diet, low fat, low cholesterol, low salt diet Hospital course: Ms. Venegas is a 67 year old female with PMH of COPD, systolic CHF, s/p AICD placement, HTN, HLD and chronic smoker. Patient presented with complaint of left lower extremity pain since 04/10/17. LE KD study in ED is concerning of high grade PVD and subsequent CT aorta with runoff found high-grade stenosis involving the left common femoral artery along with multilevel superficial femoral artery stenoses. Patient was admitted on 04/12/17 for peripheral vascular disease. Per vascular surgeon, patient will need elective open left common femoral endarterectomy with patch angioplasty but it's not urgent and can be done in outpatient setting. Vascular surgeon also thinks patient's left lower extremity pain is like from spinal or nerve netrapment instead of vascular problem. Radiology report for patient's lumbar CT on 04/10/[address] [facility] suggest moderate foraminal stenosis at L2-L3, moderate central canal stenosis & moderate /severe foraminal stenosis at L3-L4, and mild central canal & severe foraminal stenosis at L4-L5. Lumbar MRI cannot be done as patient's defibrillator is not fully approved by FDA for MRI yet. One dose of IV Solu-Medrol 80 mg was given on 04/12 for sciatica. Steroid seems to help as patient reports less left lower extremity pain & numbness/tingling and significant improvement in her ability to ambulate. At request by surgery for cardiovascular preopeative work-up, pharmacologic nuclear stress test was done and suggests prior infarct but no significant soraya-infarct ischemia. Given patient's significant improvement and desire to go home, will discharge patient home with 5-day course of prednisone ( 40 mg daily) and [place] 5-325 1 tablet 4H prn pain while continuing her home- dose gabapentin. Case was discussed with Dr. Lovell of [place] [facility] regarding her radiculopathy and spinal stenosis. Dr. Lovell will see patient in the clinic at 9 AM on 04/15/17. Patient will also need to follow up with Dr. Richards regarding her left common femoral stenosis within a week. Patient is instructed to follow up with her PCP within a week as well. All patient's questions were answered. Patient verbalized her understanding and agreed with the discharge plan. - Time Spent with Patient Total time spent providing and/or coordinating discharge services: Greater than 30 minutes - Constitutional Vitals: Temp Pulse Resp BP Pulse Ox 98.0 F 69 18 97/67 94 04/13/17 11:15 04/13/17 11:15 04/13/17 11:15 04/13/17 11:15 04/13/17 11:15 General appearance: Present: cooperative, A&O X 3, no acute distress, obese - Head Head exam: Present: atraumatic, normocephalic - Eye Eye exam: Present: EOMI, PERRL, conjuntiva pink, sclera anicteric - Neck Neck exam general surgery: Present: supple, trachea midline. Absent: lymphadenopathy - Respiratory Respiratory exam: Present: CTAB. Absent: accessory muscle use, rales, rhonchi, wheezes - Cardiovascular Cardiovascular exam: Present: RRR, +S1, +S2. Absent: diastolic murmur, gallop, rubs, systolic murmur - GI/Abdominal GI/Abdominal exam: Present: normal bowel sounds, soft, no peritoneal signs. Absent: distended, tenderness - Extremities Exam Extremities exam: Present: warm, radial pulses palpable and symetrical. Absent : calf tenderness, cyanotic, pedal edema Additional comments: No palpable pedal pulses. Patient's tenderness to palpation on left lower extremity significantly reduces compared to yesterday. - Neurological Exam Neurological exam: Present: CN II-XII intact, oriented X3, no focal deficits. Absent: pronater drift, facial droop, speech deficit Additional comments: Bilateral lower extremity strength 5/5 bilateral and no foot drop noted. - Skin Skin exam: Present: dry, intact <Dannie Olivera - Last Filed: 04/13/17 15:04> Date of Encounter: 04/13/17 - Discharge Diagnosis (1) Spinal stenosis of lumbar region with radiculopathy Priority: Primary Status: Acute (2) Left leg pain Priority: Secondary Status: Acute (3) Chronic systolic congestive heart failure Status: Chronic (4) Non-ischemic cardiomyopathy Priority: Secondary Status: Chronic (5) Vascular disease, peripheral Status: Acute (6) CAD (coronary artery disease) Status: Chronic Qualifiers: Coronary Disease-Associated Artery/Lesion type: unspecified vessel or lesion type [place] vs. transplanted heart: unspecified whether [place] or transplanted heart Associated angina: angina presence unspecified Qualified Code(s): I25.10 - Atherosclerotic heart disease of [place] coronary artery without angina pectoris (7) Diabetes mellitus Status: Chronic Qualifiers: Diabetes mellitus type: type 2 Diabetes mellitus complication status: with unspecified complications Diabetes mellitus intermediate insulin use: unspecified intermediate insulin use status Qualified Code(s): E11.8 - Type 2 diabetes mellitus with unspecified complications (8) Tobacco abuse Priority: Secondary Status: Acute Procedures/tests Complete & Pending: Procedures Performed prior 72 hours Category Date Time Status NM luba perf SPECT multi [NM] Routine Exams 04/12/17 15:43 Taken SP pharm nuclear stress Routine Y 04/12/17 15:43 Completed Date of admission: 04/12/17 04:36 Primary care physician: Ramiro Moy, Consults: 04/12/17 05:39 Consult to Physician [CONS] Routine Consulting Provider: Cosmo Richards Reason for Consult: PVD LLE Call Completed: Yes 04/12/17 14:43 Consult to Physician [CONS] Routine Consulting Provider: Juan Manuel Lovell Jr Reason for Consult: 67 F admitted for 2-day history of left leg pain radiating from back to left knee. Significant stenosis on CT aorta but no urgent need of surgery per vascular surgery. Recent CT lumbar at [facility] shows moderate central canal stenosis at L3-L4. Lumbar MRI cannot be done due defibrillator. Appreciate further evaluation and recommendations. Call Completed: Yes 04/13/17 10:47 Consult to Physical Therapy [CONS] Routine Comment: Evaluate, develop and implement POC Reason for Consult: Discharge plan OT [Consult to Occupational Therapy] [CONS] Routine Comment: Evaluate, develop and implement POC Reason for Consult: Discharge plan Hospital course: Ms. Venegas is a 67 year old female - Time Spent with Patient Total time spent providing and/or coordinating discharge services: - Constitutional Vitals: Temp Pulse Resp BP Pulse Ox 98.0 F 69 18 97/67 94 04/13/17 11:15 04/13/17 11:15 04/13/17 11:15 04/13/17 11:15 04/13/17 11:15 - Attending Attestation I examined this patient and my medical decision-making was reviewed with the Resident Physician on 04/13/17. I agree with the documented findings, disposition and treatment plan as described except to the extent set forth below. Ms. Venegas is doing better today. Her pain is still present but has improved. She is able to stand and walk. Exam Alert. Comfortable Heart reg Less pain on L leg Plan D/C today
== END 2017-04-13 16:00 | disposition home or self-care (01) ==
LOC: EMEROO 22:53 → 2ANU 22:53
PROVIDERS: ADMIT Internal Medicine; ATTEND Internal Medicine